=== PATIENT | female | born 1985 | race American Indian/Alaskan Native ===

== ENCOUNTER 2018-01-27 19:13 | Outpatient (CLI) | payer MEDICAID ==
[2018-01-27 19:38] VITALS: BP 106/58
[2018-01-27] MEDS ORDERED: LACTATED RINGERS 500 ML IV ONE (19:50)
[2018-01-27] MEDS ORDERED: NITRATEST PAPER MC ONE (19:50)
[2018-01-27 20:55] LABS: Bilirubin,Urine NEG (Negative); Blood,Urine NEG (Negative); Color,Urine Straw (Yellow); Protein,Urine <15 mg/dL mg/dL (Negative); RBC,Urine < 1.0 /HPF (0.0-6.0); Urobilinogen,Urine < 2.0 mg/dL (<2.0); WBC,Urine < 1.0 /HPF (0.0-6.0)
== END 2018-01-27 21:29 | disposition left against medical advice (07) ==
LOC: TRG 19:13
PROVIDERS: ATTEND Obstetrics & Gynecology
DX: O42.913 Preterm premature rupture of membranes, unspecified as to length of time between rupture and onset of labor, third trimester (principal); Z3A.32 32 weeks gestation of pregnancy
CPT/HCPCS: 59025; 81001

== ENCOUNTER 2018-02-10 11:12 | Outpatient (CLI) | payer MEDICAID ==
[2018-02-10] MEDS ORDERED: CELESTONE SOLUSPAN IM ONE (12:26)
[2018-02-10] MEDS ORDERED: MAXIPIME/NS 1 GM/100 ML 1 GM/100 ML BAG IV ONE (12:33)
--- NOTE | 2018-02-10 15:07 | Ultrasound Report ---
BIOPHYSICAL PROFILE: INDICATION: well being. COMPARISON: None similar. TECHNIQUE: Transabdominal ultrasound with Doppler interrogation. 2 - breathing movements 2 - movements 2 - posture and tone 2 - Qualitative amniotic fluid volume 8 - TOTAL SCORE OF POSSIBLE 8 Heart Rate (bpm) 138 CONCLUSION: Findings, as above.
--- NOTE | 2018-02-10 15:14 | Ultrasound Report ---
OB ULTRASOUND GREATER THAN 14 WEEKS - TRANSABDOMINAL AND TRANSVAGINAL INDICATION: well being. COMPARISON: None similar at this institution. TECHNIQUE: Transabdominal grayscale ultrasound with Doppler interrogation. Transvaginal images to evaluate the cervix were also performed. Gestation: [place] Position: Cephalic Amniotic Fluid: WNL (7-24 cm) SHIMON = 18.6 cm Heart Rate: 138 BPM Cervical length: 3.2 cm (Normal > 3 cm) BPD: 7.8 cm = 31 w 3 d HC: 29 cm = 31 w 6 d AC: 27.5 cm = 31 w 4 d FL: 6 cm = 31 w zero d HC/AC Ratio: 1.05 Cephalic Index: 79.7 Estimated Weight: 1767 grams Clinical age = 32 w 3 d EDC: 04/04/2018 US Gest. Age = 31 w 3 d EDC: 06/12/2017 CONCLUSION: Single, viable intrauterine gestation with ultrasound estimated age of 31 weeks and 3 days and EDC of 04/11/2018, currently in cephalic lie with details, as above. Thank you for the opportunity to participate in this patient's care.
== END 2018-02-10 13:16 | disposition home or self-care (01) ==
LOC: TRG 11:12
PROVIDERS: ATTEND Obstetrics & Gynecology
DX: O47.03 False labor before 37 completed weeks of gestation, third trimester (principal); Z3A.32 32 weeks gestation of pregnancy; Z91.010 Allergy to peanuts
CPT/HCPCS: 76816; 76817; 76819; J0692; J0702

== ENCOUNTER 2018-02-11 11:32 | Outpatient (CLI) | payer MEDICAID ==
[2018-02-11] MEDS ORDERED: LACTATED RINGERS 1,000 ML ONE (11:52)
[2018-02-11] MEDS ORDERED: CELESTONE SOLUSPAN IM ONE ×3 (12:30→12:35)
[2018-02-11] MEDS ORDERED: LACTATED RINGERS 1,000 ML IV SCH (13:00)
== END 2018-02-11 12:50 | disposition home or self-care (01) ==
LOC: TRG 11:32
PROVIDERS: ATTEND Obstetrics & Gynecology
DX: O47.03 False labor before 37 completed weeks of gestation, third trimester (principal); Z3A.32 32 weeks gestation of pregnancy
CPT/HCPCS: 96360; 96372; J0702; J7120